=== PATIENT | male | born 1985 | race Caucasian/White ===

== ENCOUNTER 2018-09-08 01:36 | Emergency (ER) | payer OTHER, SELFPAY ==
[2018-09-08 01:37] VITALS: BP 134/83; PULSE 91; RESP 18; TEMP 36.5; O2SAT 97; BMI 34.6
--- NOTE | 2018-09-08 01:44 | RAD_ITS ---
STUDY: X-RAY - LEFT HAND, ATTENTION FOR FINGER REASON FOR EXAM: Male, 33 years old. Posttraumatic left fourth finger pain. TECHNIQUE: 3 view(s) of the finger were obtained. COMPARISON: None. FINDINGS: Normal metacarpal head. Normal metacarpophalangeal joint. Normal proximal phalanx. Normal middle phalanx. Normal distal phalanx. Normal proximal interphalangeal joint. Normal distal interphalangeal joint. There is a small rounded metallic density within the dorsal soft tissues in between the third and fourth metacarpophalangeal joints. Mild soft tissue swelling of the base of the fourth finger. RAD/Finger(s) Min 2 Views IMPRESSION: 1. Soft tissue foreign body in the dorsal soft tissues between the third and fourth metacarpophalangeal joints. Electronically Signed: Jv Tony MD at 2:20 EDT Tel , Service support ,
--- NOTE | 2018-09-08 02:20 | ED.DCSUM_ITS ---
- ER Visit Summary Date of Service: 09/08/18 Chief Complaint: [Injury left ring finger] History of Present Illness: The patient is a 33 M [presents to the emergency department with injury to his left ring finger that occurred just prior to arrival the emergency department. Patient was at work when a blocking for a finger clamp came down and crushed his finger. Patient is right-hand dominant. Patient has history of hypertension.] Aleve has not helped the pain. Physical Examination: [Left hand-patient has soft tissue swelling over the proximal phalanx of the ring finger. Patient is able to flex and extend at the PIP and DIP joint. Patient able to flex and extend at the MCP joint. Neurovascular intact distally. No obvious deformity. There is some subtle ecchymosis and bruising noted. There are no open areas.] Test Results: [X-rays of the left ring finger obtained showed no fractures. There was a metallic-looking foreign body noted at the base of the proximal phalanx I suspect likely is old.] Emergency Department Course and Treatment: [Patient was placed in an aluminum splint and given work restrictions] Treatment Plan: [Follow-up with [facility]. Patient given a prescription for few Dudley for severe pain.] Disposition: [Discharged home in stable condition] Impression: [Contusion left ring finger] This note was generated with [employer] dictation software. It may contain incorrect words, spelling, and punctuation that were not noted in review of the chart prior to signing ED Disposition - Plan for ED Patient: Referrals: Care Physician,No Primary [Primary Care Provider] -
[2018-09-08 02:21] VITALS: BP 134/84; RESP 16; TEMP 37.2
--- NOTE | 2018-09-08 02:21 | ED.DEP ---
ED Disposition - Plan for ED Patient: Instructions: ED Contusion Finger Prescriptions: Hydrocodone Bitart/Apap 5-325 [[place] 5MG-325MG] 1 tab PO Q4H PRN PRN 2 Days #10 tab PRN Reason: Pain Referrals: Care Physician,No Primary [Primary Care Provider] - [facility] [GROUP OF PHYSICIANS] - 3-5 Days
== END 2018-09-08 02:20 | disposition home or self-care (01) ==
PROVIDERS: Emergency Provider Emergency Medicine
DX: S60.042A Contusion of left ring finger without damage to nail, initial encounter (principal); W31.89XA Contact with other specified machinery, initial encounter; Y93.9 Activity, unspecified; Y92.89 Other specified places as the place of occurrence of the external cause; Y99.0 Civilian activity done for income or pay; I10 Essential (primary) hypertension; Z72.0 Tobacco use
CPT/HCPCS: 73140; 99283

== ENCOUNTER → 2018-09-14 07:22 | Outpatient (CLI) | payer OTHER, SELFPAY ==
[2018-09-14 06:54] VITALS: BMI 34.6
--- NOTE | 2018-09-14 07:55 | RAD_ITS ---
STUDY: X-RAY - LEFT HAND REASON FOR EXAM: Male, 33 years old. Recent injury to the index finger with pain. TECHNIQUE: 3 view(s) of the hand. COMPARISON: None. FINDINGS: Normal radiocarpal articulation. Normal distal radioulnar joint. Normal visualized carpal bones. Normal carpal articulations Normal carpometacarpal articulation of the thumb. Normal second through fifth carpometacarpal joints. Normal metacarpi. Normal metacarpophalangeal joint of the thumb. Normal interphalangeal joint of the thumb. Normal proximal and distal phalanges of the thumb. Normal metacarpophalangeal joints of the second through fifth fingers. Normal proximal and distal interphalangeal joints of the second through fifth fingers. Normal phalanges of the second through fifth fingers. 2 mm radiopacity in the soft tissues overlying the proximal aspect of the proximal phalanx of the fourth digit. RAD/Hand Min 3 Views IMPRESSION: Normal x-ray examination of the hand. Electronically Signed: Eleuterio Hurt, at 8:25 EDT , Service support ,
== END ==
PROVIDERS: Referring Provider Physician Assistant; Visit Provider Physician Assistant
DX: S60.042A Contusion of left ring finger without damage to nail, initial encounter (principal); S60.052A Contusion of left little finger without damage to nail, initial encounter
CPT/HCPCS: 73130

== ENCOUNTER 2019-05-11 09:09 | Emergency (ER) | payer OTHER, SELFPAY ==
[2018-09-17 14:21] VITALS: BMI 34.6
[2019-05-11 09:10] VITALS: BP 129/81; PULSE 88; RESP 16; TEMP 36.7; BMI 31.8
--- NOTE | 2019-05-11 09:19 | ED.VIS.GEN ---
History of Present Illness Chief Complaint: Upper Extremity Injury Informant: Patient Onset: Weeks Context: Sudden Onset Timing: Continuous Quality: Pain Location: Radial side left wrist Current Severity: Mild Maximum Severity: Severe Worsened by: Movement Relieved by: Better with rest Associated Symptoms: No other symptoms Narrative: Patient is a 33-year-old [id number] male who presents with persistent left wrist pain. Date of injury was April 17. He was seen at [facility]. He is in a Velcro cock-up wrist splint. He states he is not getting better. There is no history of gout or pseudogout. There is no history of direct trauma. He denies paresthesia, anesthesia or motor weakness. Prior similar symptoms: Yes Recent Illness/Hospitalization: Yes - Past Medical History (1) No significant past medical history Status: Acute Past Medical History - Allergies and Home Meds Allergies/Adverse Reactions: Allergies Penicillins [PCN] Allergy (Verified 05/11/19 09:13) Unknown Primary Care Physician: Care Physician,No Primary [Primary Care Provider] - Prior records reviewed: Yes Lives: Spouse/ Significant Other Smoking Status: Heavy Smoker (>10/day) Drugs: None Review of Systems General: Denies: Chills, Fever, Sweats Gastrointestinal: Denies: Nausea, Vomiting Musculoskeletal: Reports: Swelling, Extremity Pain. Denies: Myalgias, Arthralgias, Neck pain, Back pain Skin: Denies: Rash, Wounds Neurological: Denies: Weakness, Parasthesia, Numbness Hematologic: Denies: Easy bruising, Easy bleeding Physical Exam Vital Signs/Narrative: Vital Signs Temp Pulse Resp BP 05/11/19 09:10 98.1 F 88 16 129/81 H Inital Vital Signs reviewed: Yes General: Well nourished, Well developed, No Acute Distress Head: Normocephalic, Atraumatic Eyes: Perrl, EOMI. Negative for: Pale conjunctiva, Scleral icterus Cardiovascular: Regular rate, Regular rhythm, No murmurs Respiratory: No distress, CTA bilaterally, Chest nontender Extremities: - - Pain to palpation over the radial side left wrist. There is swelling compared to the unaffected side and slight redness. There is a positive Maxwell test. There is slight crepitus with passive abduction and adduction over the EPL.. Negative for: Nontender Skin: Normal color, No Trauma Neurological: Alert, Oriented x3, Cranial nerves II-XII grossly intact, Normal Strength, Normal Sensation Diagnostic/Tx/Re-eval - Medical Decision Making Patient's history and physical exam is consistent with an extensor tenosynovitis of the extensor pollicis longus tendon. Patient was treated with a thumb spica splint. He was placed on NSAIDs. He was referred to critical access hospital since she is not satisfied with the care he is receiving at [facility]. ED Disposition - Plan for ED Patient: Disposition: Home or Assisted Living Diagnosis: De Quervain's disease (radial styloid tenosynovitis) Instructions: De Quervain Tenosynovitis Prescriptions: Naproxen [Naprosyn] 500 mg PO BID #20 tab Transmission Status: Pending to [facility]30 Referrals: Care Physician,No Primary [Primary Care Provider] - [facility] [GROUP OF PHYSICIANS] - 2 Days
[2019-05-11] MEDS: Naproxen 500 MG Tablet PO (09:32)
== END 2019-05-11 09:35 | disposition home or self-care (01) ==
LOC: ED 09:28
PROVIDERS: Emergency Provider Emergency Medicine
DX: M65.4 Radial styloid tenosynovitis [de Quervain] (principal); F17.200 Nicotine dependence, unspecified, uncomplicated
CPT/HCPCS: 99283

== ENCOUNTER → 2019-05-25 10:46 | Outpatient (CLI) | payer OTHER, SELFPAY ==
[2019-05-25 10:24] VITALS: BMI 31.8
--- NOTE | 2019-05-25 10:47 | RAD_ITS ---
STUDY: X-RAY - LEFT HAND, ATTENTION THUMB. REASON FOR EXAM: Male, 33 years old. Pain in thumb after work injury TECHNIQUE: 3 view(s) of the finger were obtained. COMPARISON: None. FINDINGS: Normal metacarpal head. Normal metacarpophalangeal joint. Normal proximal phalanx. Normal distal phalanx. Normal distal interphalangeal joint. Soft tissue swelling. RAD/Finger(s) Min 2 Views IMPRESSION: Soft tissue swelling. Electronically Signed: Eleuterio Hurt, at 11:12 EST , Service support ,
== END ==
PROVIDERS: Referring Provider Physician Assistant Surgical; Visit Provider Physician Assistant Surgical
DX: M77.8 Other enthesopathies, not elsewhere classified (principal)
CPT/HCPCS: 73140

== ENCOUNTER 2021-04-30 11:27 | Emergency (ER) | payer MEDICAID, SELFPAY ==
[2021-04-30 11:28] VITALS: BP 134/89; PULSE 91; RESP 18; TEMP 35.7; O2SAT 96; BMI 35.2
--- NOTE | 2021-04-30 11:33 | NURSING ---
NO OLD EKGS
--- NOTE | 2021-04-30 11:40 | EKG12_ITS ---
Test Reason : CP Blood Pressure : / mmHG Vent. Rate : 077 BPM Atrial Rate : 077 BPM P-R Int : 168 ms QRS Dur : 110 ms QT Int : 388 ms P-R-T Axes : 062 047 060 degrees QTc Int : 439 ms Normal sinus rhythm Normal ECG Confirmed by SINDY HUFF, LENI ([id number]), general expeditor LOREN BOYD ([id number]) on 05/02/2021 12:45:34 PM Referred By: GALE/RICKY Confirmed By:REKHA CALLAHAN MD
--- NOTE | 2021-04-30 11:40 | RAD_ITS ---
STUDY: X-RAY CHEST REASON FOR EXAM: Male, 35 years old. Chest pain TECHNIQUE: Single AP portable view of the chest. COMPARISON: None. FINDINGS: EKG electrodes are seen. The lungs are clear and expanded. There is no demonstrated pleural abnormality. Normal size heart. Normal mediastinum and martha. Normal visualized pulmonary arteries. Normal visualized aortic arch and descending thoracic aorta. Normal visualized thoracic spine. Normal visualized ribs, clavicles, and shoulders. There is no demonstrated abnormality of the visualized soft tissue structures of the upper abdomen. RAD/Chest 1 View (Portable) IMPRESSION: Normal x-ray examination of the chest. Electronically Signed: Eleuterio Hurt MD at 13:03 EST , Service support ,
--- NOTE | 2021-04-30 11:46 | ED.VIS.CHEST ---
HPI History of Present Illness Chief Complaint: Chest Pain Informant: patient and spouse/S.O. Onset/Context/Timing Onset: Weeks Activity at onset: gradual Timing: Intermittent Quality: Positive for Aching, Burning and Sharp Location: Substernal, Right Parasternal, Left Parasternal, Right Chest and Left Chest Current Severity: Mild Maximum Severity: Mild Worsened By: Coughing Relieved By: Nothing Associated Symptoms: Positive for Cough; Negative for Nausea, Vomiting, Diaphoresis, Dyspnea, Fever, Lightheadedness, Acid Reflux and Palpitations Narrative Narrative: 35-year-old male noticing a past medical history. No history of prior DVT or PE nor any recent travel, surgery or immobilization. No family history. States that last 1 to 2 weeks he has had intermittent chest pain. Primarily of burning or stabbing worse with coughing. No hemoptysis. No shortness of breath. No leg pain or swelling. 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 He has no known cardiac history. Prior Similar Symptoms: No Recent Illness/Hospitalization: No CVD Risk Factors: Positive for Smoking; Negative for Hypertension, Diabetes and Hypercholesterolemia PE Risk Factors: Negative for Recent Travel/Surgery, Recent Immobilization, Prior DVT or PE, Cancer and OCP + Smoking + >/=35 TAD Risk Factors: Negative for Marfan's Syndrome and Hypertension [facility] Medical History (Updated 04/30/21 @ 14:[address] Abundio Mera MD) Arthritis Chronic neck and back pain Difficulty balancing Hypertension Knee pain Severe headache Shortness of breath Shoulder pain Home Medications NK 04/30/21 [History Last Taken Unknown] Allergy/AdvReac Type Severity Reaction Status Date / Time Penicillins [PCN] Allergy Unknown Verified 04/30/21 11:28 Social History Smoking Status: Current every day smoker tobacco type: cigarettes ROS ROS ED ROS Narrative Cough. Chest pain. Constitutional Constitutional ED: Denies fever(s) ENT ENT ED: Denies ear pain Cardiovascular Cardiovascular: Reports as per HPI and chest pain; Denies palpitations or racing heartbeat Respiratory/Chest Respiratory/Chest: Reports cough; Denies dyspnea Gastrointestinal Gastrointestinal: Denies abdominal pain, diarrhea, nausea or vomiting Genitourinary Genitourinary ED: Denies dysuria Musculoskeletal Musculoskeletal: Denies arthralgias or myalgias Integumentary Denies rash Neurologic Neurologic: Denies headache(s) Psychiatric Psychiatric: Denies depression Endocrine Endocrinology: Denies polyuria Hematologic/Lymphatic Hematologic/Lymphatic: Denies easy bruising Allergic/Immunologic Allergic/Immunologic ED: Denies urticaria EXAM Physical Exam Narrative Exam Narrative: 35-year-old male no acute distress vital signs stable afebrile. Pulse ox 96% on room air no hypoxia. HEENT exam unremarkable. Neck nontender no JVD. No lymphadenopathy. Lungs clear to auscultation bilaterally. Equal symmetrical. Heart regular rate and rhythm no murmur rate about 90. Chest were nontender. Abdomen soft nontender. Moving all 4 extremities. Symmetrical radial pulses. Calves are nontender without edema or cords. Neurologically is awake and alert with no focal motor deficits. Back nontender. Skin has multiple tattoos no rashes. Const Vital Signs: 04/30/21 11:28 04/30/21 11:56 04/30/21 11:57 Temperature 96.3 F L Temperature Source Temporal Pulse Rate 91 Respiratory Rate 18 Respiratory Effort Normal Non-Labored Blood Pressure 134/89 H Blood Pressure Mean 104 Pulse Ox 96 Oxygen Delivery Method Room Air Room Air 04/30/21 13:28 Temperature Temperature Source Pulse Rate 69 Respiratory Rate 17 Respiratory Effort Blood Pressure 136/75 H Blood Pressure Mean 95 Pulse Ox 98 Oxygen Delivery Method Room Air Positive well nourished and well developed; Negative for cachectic, contractures or unkempt General Appearance ED: well developed and NAD; Negative for unkempt, cachectic, contractures or pallor Nutritional Appearance: Negative for cachectic HEENT Reports moist mucous membranes normocephalic and atraumatic; Negative for trauma or tenderness Eyes PERRL and EOMs intact bilaterally Neck no lymphadenopathy, supple and no JVD General: Negative for tenderness Chest Wall inspection of chest normal and palpation of chest normal Resp normal respiratory effort and clear to auscultation bilaterally Effort and Inspection: respiratory distress Auscultation: Negative for rales, rhonchi or wheezes Cardio regular rate, regular rhythm, S1 normal heart sound, S2 normal heart sound and no murmurs Rate: Negative for tachycardic GI normal to inspection, nondistended, normoactive bowel sounds, soft to palpation, non-tender, non-distended and no masses Auscultation: Negative for hyperactive bowel sounds Back/Spine no CVA tenderness General Back: Negative for CVA tenderness Extremity normal to inspection General Extremety ED: Negative for edema, pulses abnormal or tenderness General Extremity: Negative for edema or pulses abnormal Neuro oriented x3 Sensorium / Orientation: awake, alert, oriented to person, oriented to place and oriented to time Motor Exam: strength 5/5 throughout Psych mental status grossly normal Appearance: Negative for unkempt Mood & Affect: Negative for depressed or tearful Skin no rashes or lesions noted and no wounds General Skin Exam: Negative for jaundice or pallor Heart Score History: Slightly/Non-Suspicious ECG: Normal Age: </= 45 years Risk Factors: 1 or 2 Risk Factors Troponin: </= Normal Limit Score: 1 MDM MDM MDM Narrative Medical decision making narrative: 35-year-old male atypical noncardiac sounding chest pain. No risk factors for pulmonary emboli. No history. Exam benign. He will undergo cardiac work-up. Also get a Covid test due to his cough. Repeat exam at 2:52 PM patient doing well. Unchanged. We went over all his normal test results. Will be discharged home with outpatient follow-up. Lab Data Attestation: I reviewed the patient's lab results. Lab results narrative: CBC normal white count 9. Hemoglobin 15. Electrolytes unremarkable gap is 7 normal creatinine 1.2. Glucose 113. Troponin 4. Labs: Laboratory Results - last 24 hr 04/30/21 04/30/21 11:50 11:50 WBC 9.7 RBC 5.46 Hgb 15.9 Hct 47.2 MCV 86.4 MCH 29.1 MCHC 33.7 RDW Std Deviation 40.6 RDW Coeff of Robbin 13.0 Plt Count 310 MPV 9.1 Immature Gran % (Auto) 0.300 Neut % (Auto) 63.1 Lymph % (Auto) 26.9 Hartley % (Auto) 7.9 Eos % (Auto) 1.3 Baso % (Auto) 0.5 Absolute Neuts (auto) 6.1 Absolute Lymphs (auto) 2.61 Nucleated RBC % 0 Sodium 138 Potassium 3.8 Chloride 104 Carbon Dioxide 27.0 Anion Gap 7 BUN 14 Creatinine 1.20 Estim Creat Clear Calc 90.64 Est GFR (MDRD) Af Amer 88 Est GFR (MDRD) Non-Af 73 BUN/Creatinine Ratio 11.7 Glucose 113 H Calcium 9.3 Troponin I High Sens 4 Radiography Chest X-Ray - ED: 1 View, Normal, Heart, Lungs, Mediastinum, Bony Structures and No Acute Disease Diagnostic Testing: Clinical Impression(s) from Imaging Studies Chest X-Ray 04/30/21 11:40 IMPRESSION: Normal x-ray examination of the chest. Electronically Signed: Eleuterio Hurt MD at 13:03 EST , Service support , Rhythm Strip Rhythm Strip: Sinus Rhythm Rate: 77 Ectopy: None EKG Initial EKG: Attestation: I personally reviewed and interpreted this EKG as follows: Interpretation: Sinus Rhythm and No Acute Injury Pattern Comments: Normal sinus rhythm rate of 77 no acute signs of OH nor ischemia. No old EKG available. Prior EKG tracings: not available for review Discharge Plan Triage Chief Complaint: Chest Pain Other Complaint: Shortness of Breath ED Provider: Abundio Mera Dx/Rx/DC Orders Clinical Impression: Chest pain, Viral URI Instructions: ED URI, Viral, No Abx (Adult) Prescriptions: No Action NK RF: 0 Primary Care Provider: Care Physician,No Primary Referrals: J Luis Castellanos MD [STAFF PHYSICIAN] - 1 Week if not improving Care Physician,No Primary [Primary Care Provider] - Activity Restrictions/Additional Instructions: Your labs, chest x-ray and EKG were all normal. They give a viral respiratory infection. Tylenol and Motrin for pain. Follow-up if not improving. Disposition Disposition: Home, Self Care
[2021-04-30 12:01] LABS: Absolute Lymphocyte Count 2.61 X10^3/uL (0.83-4.51); Absolute Neutrophil Count 6.1 X10^3/uL (2.0-7.7); Basophil# 0.05 X10^3/uL; Basophil% 0.5 % (0-1); Eosinophil# 0.13 X10^3/uL; Eosinophils% 1.3 % (0-5); Hematocrit 47.2 % (40-54); Hemoglobin 15.9 g/dL (13.0-16.5); Lymphocyte # 2.61 X10^3/ul (0.83-4.51); Lymphocyte % 26.9 % (19-41); Mean Corp Hgb Conc 33.7 g/dL (32-36); Mean Corpuscular Hgb 29.1 pg (27.0-32.0); Mean Corpuscular Volume 86.4 fL (80-94); Mean Platelet Vol. 9.1 fl (6.2-12.0); Monocyte# 0.77 X10^3/uL; Monocyte% 7.9 % (0-10); NRBC Flagged by Analyzer 0 % (0-5); Neutrophil % 63.1 % (47-70); Platelet Count 310 K/mm3 (150-450); RBC Distribution Width SD 40.6 fl (35.1-43.9); Red Blood Count 5.46 M/mm3 (4.6-6.2); White Blood Count 9.7 K/mm3 (4.4-11.0)
[2021-04-30 12:18] LABS: Anion Gap 7 (5-15); BUN 14 mg/dL (7-18); BUN/Creat Ratio 11.7 RATIO (10-20); Calcium,Total 9.3 mg/dL (8.5-10.1); Chloride 104 mmol/L (98-107); EST Glomerular Filtration Rate 73 mL/min (>60); Est Glom Filt Rate - Afr Amer 88 mL/min (>60); Estimated Creatinine Clearance 90.64 ml/min; Glucose 113 mg/dL (74-106); Potassium 3.8 mmol/L (3.5-5.1); Sodium Level 138 mmol/L (136-145); Troponin-I HS 4 pg/mL (3.0-78.0)
[2021-04-30 13:28] VITALS: BP 136/75; PULSE 69; RESP 17; O2SAT 98
[2021-04-30 15:01] VITALS: BP 136/72; PULSE 72; RESP 16; O2SAT 98
== END 2021-04-30 15:02 | disposition home or self-care (01) ==
PROVIDERS: Emergency Provider Emergency Medicine
DX: R07.9 Chest pain, unspecified (principal); J06.9 Acute upper respiratory infection, unspecified; I10 Essential (primary) hypertension; M19.90 Unspecified osteoarthritis, unspecified site; F17.210 Nicotine dependence, cigarettes, uncomplicated
CPT/HCPCS: 71045; 80048; 84484; 85025; 87426; 93005; 99284; A4216